=== PATIENT | female | born 1990 | race Hispanic/Latino ===

== ENCOUNTER 2018-05-16 20:10 | Emergency (ER) | payer SELFPAY ==
[~2018-05-16 20:10] MED LIST: PREN-114 PO
[2018-05-16] MEDS ORDERED: ASPIRIN 325 MG TABLET ONE (20:19)
[2018-05-16 20:29] LABS: BASOPHILS % (AUTO) 0.3 % (0.0-5.0); EOSINOPHILS % (AUTO) 1.4 % (0.0-8.0); HEMATOCRIT 41.7 % (36-48); LYMPHOCYTES % (AUTO) 42.2 % (21.0-51.0); MEAN CORPUSCULAR HEMOGLOBIN 31.1 pg (27.0-33.0); MEAN CORPUSCULAR HGB CONC 33.7 g/dL (32.0-36.0); MEAN CORPUSCULAR VOLUME 92.3 fL (79-99); MONOCYTES % (AUTO) 7.8 % (3.0-13.0); NEUTROPHILS % (AUTO) 48.3 % (40.0-77.0); NUCLEATED RED BLOOD CELLS 0.1 % (0.0-0.19); PLATELET COUNT (AUTO) 217 K/uL (130-400); RED BLOOD CELL COUNT(AUTO) 4.51 MIL/uL (4.00-5.50); RED CELL DISTRIBUTION WIDTH 13.1 % (11.0-15.5); WHITE BLOOD COUNT (AUTO) 6.7 K/uL (4.8-10.8)
[2018-05-16 20:36] LABS: HCG,QUAL RESULT NEGATIVE (NEGATIVE)
[2018-05-16 20:42] LABS: AMPHET/METH SCREEN,URINE NEGATIVE (NEGATIVE); BARBITURATE SCREEN, URINE NEGATIVE (NEGATIVE); BENZODIAZEPINES SCREEN,URINE NEGATIVE (NEGATIVE); CANNABINOID SCREEN,URINE POSITIVE (NEGATIVE); COCAINE SCREEN,URINE NEGATIVE (NEGATIVE); OPIATE SCREEN,URINE POSITIVE (NEGATIVE); PHENCYCLIDINE SCREEN,URINE NEGATIVE (NEGATIVE)
[2018-05-16 20:43] LABS: APPEARANCE,URINE Cloudy (CLEAR); BILIRUBIN,URINE Negative (NEGATIVE); COLOR,URINE Yellow (YELLOW); GLUCOSE, URINE (UA) Negative (NEGATIVE); KETONES,URINE Negative (NEGATIVE); LEUKOCYTE ESTERASE ,URINE Negative (NEGATIVE); NITRATE,URINE Negative (NEGATIVE); OCCULT BLOOD,URINE Moderate (NEGATIVE); PH,URINE 6.5 (5.0-8.0); PROTEIN,URINE Negative (NEGATIVE)
[2018-05-16 20:48] LABS: CREATININE 0.8 mg/dL (0.5-1.5); POTASSIUM 3.5 mmol/L (3.5-5.1)
[2018-05-16 20:51] LABS: INR 0.95 (0.85-1.15); PARTIAL THROMBOPLASTIN TIME 25.2 SEC (26.3-35.5)
[2018-05-16 20:53] LABS: BACTERIA,URINE Few /HPF (None Seen); WBC,URINE 0-1 /HPF (0-1)
[2018-05-16 20:54] LABS: AMORPHOUS SEDIMENT,UR Many /LPF (None Seen); MUCUS,URINE Few LPF (None Seen)
[2018-05-16 21:02] LABS: ALBUMIN 3.9 g/dL (3.5-5.0); BILIRUBIN,TOTAL 0.2 mg/dL (0.2-1.0); CREATINE KINASE MB 0.5 ng/mL (0.5-3.6); TOTAL PROTEIN, SERUM 7.7 g/dL (6.0-8.3)
[2018-05-16] MEDS ORDERED: KETOROLAC TROMETHAMINE 30MG/ML ONE (21:24)
== END 2018-05-16 21:40 | disposition home or self-care (01) ==
LOC: EDH 20:10
DX: R07.89 Other chest pain (principal); F41.9 Anxiety disorder, unspecified; F19.10 Other psychoactive substance abuse, uncomplicated; Z87.891 Personal history of nicotine dependence
CPT/HCPCS: 36415; 71045; 80053; 80305; 81001; 81025; 82550; 82553; 83874; 84484; 85025; 85610; 85730; 93005; 94761; 96374; 99285; J1885

== ENCOUNTER 2019-05-28 20:16 | Inpatient (IN) | payer SELFPAY ==
[~2019-05-28] VITALS: Ht 157.5 cm; Wt 70.8 kg
[2019-05-28] MEDS ORDERED: ONDANSETRON HCL 4 MG/2 ML VIAL ONE (20:30)
[2019-05-28] MEDS ORDERED: SODIUM CHLORIDE 0.9% 1000ML 1,000 ML IV ONE (20:30)
[2019-05-28] MEDS ORDERED: ACETAMINOPHEN 325 MG TAB ONE (20:30)
[2019-05-28 20:48] LABS: BASOPHILS % (AUTO) 0.2 % (0.0-5.0); EOSINOPHILS % (AUTO) 1.2 % (0.0-8.0); HEMATOCRIT 38.9 % (36-48); MEAN CORPUSCULAR HGB CONC 33.5 g/dL (32.0-36.0); MEAN CORPUSCULAR VOLUME 98.4 fL (79-99); MONOCYTES % (AUTO) 5.1 % (3.0-13.0); NEUTROPHILS % (AUTO) 69.5 % (40.0-77.0); PLATELET COUNT (AUTO) 186 K/uL (130-400); RED BLOOD CELL COUNT(AUTO) 3.95 MIL/uL (4.00-5.50); RED CELL DISTRIBUTION WIDTH 13.1 % (11.0-15.5); WHITE BLOOD COUNT (AUTO) 5.9 K/uL (4.8-10.8)
[2019-05-28 20:49] LABS: APPEARANCE,URINE CLOUDY (CLEAR); BILIRUBIN,URINE LARGE (NEGATIVE); COLOR,URINE YELLOW (YELLOW); GLUCOSE, URINE (UA) NEGATIVE (NEGATIVE); KETONES,URINE 5 mg/dL (NEGATIVE); LEUKOCYTE ESTERASE ,URINE NEGATIVE (NEGATIVE); NITRATE,URINE NEGATIVE (NEGATIVE); OCCULT BLOOD,URINE MODERATE (NEGATIVE); PH,URINE 8.5 (5.0-8.0); PROTEIN,URINE TRACE mg/dL (NEGATIVE); UROBILINOGEN,URINE >=8.0 mg/dL (0.2-1.0)
[2019-05-28 20:58] LABS: CREATININE 0.7 mg/dL (0.5-1.5); POTASSIUM 3.1 mmol/L (3.5-5.1)
[2019-05-28 21:00] LABS: AMPHET/METH SCREEN,URINE NEGATIVE (NEGATIVE); BARBITURATE SCREEN, URINE NEGATIVE (NEGATIVE); BENZODIAZEPINES SCREEN,URINE NEGATIVE (NEGATIVE); COCAINE SCREEN,URINE POSITIVE (NEGATIVE)
[2019-05-28 21:05] LABS: HCG,QUAL RESULT NEGATIVE (NEGATIVE)
[2019-05-28 21:08] LABS: ALBUMIN 3.9 g/dL (3.5-5.0); BILIRUBIN,TOTAL 2.7 mg/dL (0.2-1.0); TOTAL PROTEIN, SERUM 7.2 g/dL (6.0-8.3)
[2019-05-28 21:34] LABS: BACTERIA,URINE Few /HPF (None Seen); WBC,URINE 0-1 /HPF (0-1)
[2019-05-28 21:35] LABS: SQUAMOUS EPITHELIAL CELL,UR Few /HPF (0-2)
[2019-05-28 21:36] LABS: AMORPHOUS SEDIMENT,UR Moderate /LPF (None Seen); MUCUS,URINE Few LPF (None Seen)
[2019-05-28 21:41] LABS: CANNABINOID SCREEN,URINE POSITIVE (NEGATIVE); OPIATE SCREEN,URINE POSITIVE (NEGATIVE); PHENCYCLIDINE SCREEN,URINE NEGATIVE (NEGATIVE)
[2019-05-28] MEDS ORDERED: NITROGLYCERIN 0.4 MG SL TAB SL PRN (23:45)
[2019-05-28] MEDS ORDERED: ONDANSETRON HCL 4 MG/2 ML VIAL IV PRN (23:45)
[2019-05-28] MEDS ORDERED: ACETAMINOPHEN 650 MG SUPPOSITORY RC PRN ×2 (23:45)
[2019-05-28] MEDS ORDERED: POTASSIUM CHLORIDE 20MEQ/100ML 100 ML IV PRN (23:45)
[2019-05-28] MEDS ORDERED: LIDOCAINE HCL-MPF 1% 2ML VIAL IVP PRN (23:45)
[2019-05-28] MEDS ORDERED: MAGNESIUM 2GM PREMIX 50ML 50 ML IV PRN (23:45)
[2019-05-28] MEDS ORDERED: SODIUM CHLORIDE 0.9% 1000ML 1,000 ML IV SCH ×2 (23:45)
[2019-05-29] MEDS ORDERED: ASPIRIN 325MG EC TAB 325 MG TABLET.DR PO STA (00:07)
[2019-05-29] MEDS ORDERED: POTASSIUM BICARB/CIT AC 25 MEQ TABLET.EFF ONE (00:32)
[2019-05-29] MEDS ORDERED: ASPIRIN 325 MG TABLET ONE (00:32)
[2019-05-29] MEDS ORDERED: KETOROLAC TROMETHAMINE 15MG/ML ONE (01:16)
[2019-05-29] MEDS ORDERED: ONDANSETRON HCL 4 MG/2 ML VIAL ONE (01:16)
[2019-05-29 03:15] VITALS: BP 113/74
[2019-05-29 07:43] LABS: HEMATOCRIT 35.6 % (36-48); MEAN CORPUSCULAR HEMOGLOBIN 33.6 pg (27.0-33.0); MEAN CORPUSCULAR HGB CONC 33.6 g/dL (32.0-36.0); NUCLEATED RED BLOOD CELLS 0.1 % (0.0-0.19); PLATELET COUNT (AUTO) 159 K/uL (130-400); RED BLOOD CELL COUNT(AUTO) 3.56 MIL/uL (4.00-5.50); RED CELL DISTRIBUTION WIDTH 13.1 % (11.0-15.5); WHITE BLOOD COUNT (AUTO) 4.4 K/uL (4.8-10.8)
[2019-05-29 07:54] LABS: EOSINOPHILS % (MANUAL) 1 % (1-6); LYMPHOCYTES % (MANUAL) 55 % (22-44); MAN.DIFF COMMENT-IMPRESSION MANUAL DIFFERENTIAL; MONOCYTES % (MANUAL) 7 % (2-9); PLATELET MORPHOLOGY COMMENT ADEQUATE; SEGMENTED NEUTROPHILS % 37 % (40-70)
[2019-05-29 08:00] VITALS: BP 131/73
[2019-05-29 08:19] LABS: ALBUMIN 3.1 g/dL (3.5-5.0); ASPARTATE AMINOTRANSFERASE 543 U/L (10-37); BILIRUBIN,TOTAL 2.3 mg/dL (0.2-1.0); CARBON DIOXIDE 27 mmol/L (21-32); CHLORIDE 107 mmol/L (101-111); CREATINE KINASE, TOTAL 50 U/L (21-232); CREATININE 0.7 mg/dL (0.5-1.5); GLOMERULAR FILTR. RATE CALC 108 mL/min (>60); GLUCOSE,RANDOM 116 mg/dL (70-105); MYOGLOBIN 19 ng/mL (10-92); SODIUM SERUM 140 mmol/L (136-145); TOTAL PROTEIN, SERUM 6.1 g/dL (6.0-8.3); TROPONIN I < 0.04 ng/mL (0.00-0.06); UREA NITROGEN, BLOOD 10 mg/dL (7-18)
[2019-05-29 08:23] LABS: ALANINE AMINOTRANSFERASE 737 U/L (12-78)
[2019-05-29] MEDS ORDERED: ENOXAPARIN SODIUM 30 MG/0.3 ML SQ SCH (09:00)
[2019-05-29] MEDS ORDERED: ASPIRIN 325MG EC TAB 325 MG TABLET.DR PO SCH (09:00)
--- NOTE | 2019-05-29 09:30 | NUR ---
INITIAL MET W BARBARA HAWTHORNE, IN PATIENT, COHERENT- LW PARENTS AND HER KIDS. [facility] DME- ASKED IF SHE HAS SOUGHT TREATMENT FOR DRUG USE IN PAST, DENIES ADVISED PT COCAINE/CRACK CAN CAUSE EXTREME STOMACH PAIN AND IS DESTRUCTIVE TO ONES HEALTH/BEAUTY /YOUTH. CM WILL BRING DRUG REHAB INFO DC HOME, CM TO FOLLOW Addendum: 05/29/19 at 1652 by CRISTA CHEUNG RN CM Amended: Links added.
--- NOTE | 2019-05-29 09:48 | NUR ---
SURGICAL CONSULT Dr. Morrison has been notified of consult. Stated he will see patient later. He was already familiar with case.
[2019-05-29 12:00] VITALS: BP 114/60
[2019-05-29 12:25] LABS: CREATINE KINASE, TOTAL 45 U/L (21-232); MYOGLOBIN 19 ng/mL (10-92); TROPONIN I < 0.04 ng/mL (0.00-0.06)
[2019-05-29] MEDS: M.V.I. IV [ADULT] 10 ML, FOLIC ACID 1 MG, THIAMINE HCL 100 MG in SODIUM CHLORIDE 0.9% 1... IV SCH (15:17)
[2019-05-29] MEDS: FAMOTIDINE/PF 20 MG/2 ML VIAL IV SCH ×2 (15:17→21:59)
[2019-05-29] MEDS: KETOROLAC TROMETHAMINE 15MG/ML IV PRN (15:59)
[2019-05-29 16:00] VITALS: BP 119/67
--- NOTE | 2019-05-29 16:03 | NUR ---
SURGICAL CONSENT Obtained consent for laparoscopic cholecystectomy with intraoperative cholangiogram with possible open cholecystectomy; filed in chart.
[2019-05-29 20:00] VITALS: BP 119/65
[2019-05-29 23:44] VITALS: BP 122/78
[2019-05-30] VITALS (25 sets, daily range): BP systolic 107–146; BP diastolic 54–92
[2019-05-30] MEDS ORDERED: BUPIVACAINE/EPI/PF 0.5% 30ML VIAL IJ ONE ×2 (05:42→07:19)
[2019-05-30] MEDS ORDERED: ROCURONIUM 10MG/1ML SYR 10 MG/ML ML ONE (06:07)
[2019-05-30] MEDS ORDERED: LIDOCAINE PF 2% 5ML ABBOJECT ONE (06:07)
[2019-05-30] MEDS ORDERED: SUCCINYLCHOLINE 200MG/10ML SYR ONE (06:07)
[2019-05-30] MEDS ORDERED: FENTANYL CITRATE PF 50 MCG/1 ML 2ML VIAL ONE ×2 (06:07→07:52)
[2019-05-30] MEDS ORDERED: PROPOFOL 10 MG/ML 20ML VIAL IV ONE (06:07)
[2019-05-30] MEDS ORDERED: SODIUM CHLORIDE 0.9% 1000ML 1,000 ML IV ONE (06:22)
[2019-05-30] MEDS ORDERED: IOHEXOL-350 50ML VIAL IV ONE (06:35)
[2019-05-30] MEDS ORDERED: MIDAZOLAM HCL 1 MG/ML 2ML VIAL ONE (06:58)
[2019-05-30] MEDS ORDERED: CEFAZOLIN SODIUM 1 GM VIAL ONE (07:09)
[2019-05-30] MEDS ORDERED: GLUCAGON 1MG KIT 1 MG ML ONE (07:32)
[2019-05-30] MEDS ORDERED: GLYCOPYRROLATE 1 MG/5 ML SYRINGE ONE (07:48)
[2019-05-30] MEDS ORDERED: NEOSTIGMINE 5MG/5ML SYR IV ONE (07:49)
[2019-05-30] MEDS ORDERED: KETOROLAC TROMETHAMINE 30MG/ML ONE (07:52)
[2019-05-30] MEDS ORDERED: ONDANSETRON HCL 4 MG/2 ML VIAL ONE (07:52)
[2019-05-30] MEDS ORDERED: MEPERIDINE-PF 25 MG/ML SYG ONE ×2 (08:12→08:26)
[2019-05-30] MEDS: M.V.I. IV [ADULT] 10 ML, FOLIC ACID 1 MG, THIAMINE HCL 100 MG in SODIUM CHLORIDE 0.9% 1... IV SCH (09:15)
--- NOTE | 2019-05-30 09:15 | NUR ---
POST OP NOTE: RECEIVED REPORT FROM BENJAMIN WINSTON RR, PT. NOW TO ROOM 317, SHE IS AWAKE, C/O OF SOME DISCOMFORT.BP 129/76, HR 80, RR 18, T.98.6, WITH O2 SATS 98% ON RA. 4 BAND AIDS SCATTERED ACROSS ABD. CLEAN AND DRY. STARTED ON RL AT 125ML/HR. WILL REMIAN NPO UNTIL SEEN BY DR. BOGGS AND HE HAS BEEN NOTIFIED.
[2019-05-30 09:20] LABS: HEMATOCRIT 37.7 % (36-48); MEAN CORPUSCULAR HEMOGLOBIN 33.1 pg (27.0-33.0); MEAN CORPUSCULAR HGB CONC 33.2 g/dL (32.0-36.0); MEAN CORPUSCULAR VOLUME 99.7 fL (79-99); PLATELET COUNT (AUTO) 181 K/uL (130-400); RED BLOOD CELL COUNT(AUTO) 3.78 MIL/uL (4.00-5.50); RED CELL DISTRIBUTION WIDTH 13.2 % (11.0-15.5)
[2019-05-30] MEDS: FAMOTIDINE/PF 20 MG/2 ML VIAL IV SCH ×2 (09:35→20:10)
[2019-05-30 09:50] LABS: ALBUMIN 3.3 g/dL (3.5-5.0); BILIRUBIN,TOTAL 2.2 mg/dL (0.2-1.0); CREATININE 0.7 mg/dL (0.5-1.5); POTASSIUM 3.8 mmol/L (3.5-5.1); TOTAL PROTEIN, SERUM 6.4 g/dL (6.0-8.3)
--- NOTE | 2019-05-30 10:36 | NUR ---
CALLED DR. BOGGS RE: ERCP. PER PREVIOUS CONVERSATION WITH ASHISH, HE HAS ALREADY BEEN CONTACTED BY DR. JOAQUIN.
[2019-05-30] MEDS: LACTATED RINGERS 1000ML 1,000 ML IV SCH ×2 (11:42→20:11)
[2019-05-30] MEDS: MEPERIDINE-PF 25 MG/ML SYG IV PRN ×2 (11:42→20:11)
[2019-05-30] MEDS: KETOROLAC TROMETHAMINE 15MG/ML IV PRN (16:25)
[2019-05-30] MEDS: ZOSYN 3.375GM+NS 50ML 50 ML IV SCH (18:32)
--- NOTE | 2019-05-30 19:51 | NUR ---
DR. BOGGS VISITED WITH PT. PLAN TO DO ERCP TOMORROW.
--- NOTE | 2019-05-30 20:11 | NUR ---
Nursing Note Pt stated she is having pain in her abdomen and arms. I informed the pt that she does have Demerol but that probably wont help with the pain since she is having gas pain from her surgery pt stated she understands but still needs the pain medication. I also informed the pt that she needs to walk and move to help relive gas pain and to help with passing gas. Pt stated she understands but she doesn't want to move right now.
--- NOTE | 2019-05-30 22:50 | NUR ---
Nursing Note Informed the pt that she needs to move but pt is still wanting to lay in the bed. Pt is still having pain. Pt is burping but still not passing gas at this time.
[2019-05-31] VITALS (19 sets, daily range): BP systolic 108–127; BP diastolic 60–80
[2019-05-31] MEDS: ZOSYN 3.375GM+NS 50ML 50 ML IV SCH ×3 (02:31→19:51)
[2019-05-31] MEDS: LACTATED RINGERS 1000ML 1,000 ML IV SCH ×3 (02:32→19:30)
[2019-05-31] MEDS: KETOROLAC TROMETHAMINE 15MG/ML IV PRN (02:39)
[2019-05-31 05:59] LABS: MEAN CORPUSCULAR HEMOGLOBIN 32.8 pg (27.0-33.0); MEAN CORPUSCULAR VOLUME 99.4 fL (79-99); PLATELET COUNT (AUTO) 200 K/uL (130-400); RED BLOOD CELL COUNT(AUTO) 3.22 MIL/uL (4.00-5.50); RED CELL DISTRIBUTION WIDTH 13.4 % (11.0-15.5); WHITE BLOOD COUNT (AUTO) 6.3 K/uL (4.8-10.8)
[2019-05-31 06:05] LABS: LYMPHOCYTES % (MANUAL) 26 % (22-44); MAN.DIFF COMMENT-IMPRESSION MANUAL DIFFERENTIAL; MONOCYTES % (MANUAL) 2 % (2-9); SEGMENTED NEUTROPHILS % 72 % (40-70)
[2019-05-31 06:26] LABS: BILIRUBIN,TOTAL 2.4 mg/dL (0.2-1.0); CREATININE 0.7 mg/dL (0.5-1.5); POTASSIUM 4.3 mmol/L (3.5-5.1); TOTAL PROTEIN, SERUM 6.2 g/dL (6.0-8.3)
[2019-05-31] MEDS: FAMOTIDINE/PF 20 MG/2 ML VIAL IV SCH ×2 (08:32→19:52)
[2019-05-31] MEDS: MEPERIDINE-PF 25 MG/ML SYG IV PRN (11:41)
--- NOTE | 2019-05-31 15:27 | NUR ---
TO GI LAB NOW FOR ERCP.
[2019-05-31] MEDS ORDERED: IOHEXOL-350 50ML VIAL IV ONE (15:31)
[2019-05-31] MEDS ORDERED: LIDOCAINE HCL 2% 20ML ONE (16:35)
[2019-05-31] MEDS ORDERED: SUCCINYLCHOLINE CHLORIDE 20 MG/ML 10 ML VIAL ONE (16:35)
[2019-05-31] MEDS ORDERED: PROPOFOL 10 MG/ML 20ML VIAL IV ONE (16:35)
[2019-05-31] MEDS ORDERED: FENTANYL CITRATE PF 50 MCG/1 ML 2ML VIAL ONE (17:09)
[2019-05-31] MEDS ORDERED: METOCLOPRAMIDE 10 MG/2 ML VIAL ONE (17:59)
[2019-05-31] MEDS ORDERED: INDOMETHACIN 50 MG SUPP.RECT RC SCH (18:15)
--- NOTE | 2019-05-31 19:50 | NUR ---
ASSESS SHIFT ASSESSMENT DONE, PLEASE REFER TO CHART.POST OP V/S MONITORED, STABLE. DUE MEDS ADMINISTERED, TOLERATED WELL. KEPT RESTED AND COMFORTABLE. CALL LIGHT WITHIN REACH. WILL MONITOR PT.
[2019-05-31] MEDS: M.V.I. IV [ADULT] 10 ML, FOLIC ACID 1 MG, THIAMINE HCL 100 MG in SODIUM CHLORIDE 0.9% 1... IV SCH (19:51)
--- NOTE | 2019-05-31 22:15 | NUR ---
ROUNDS PT RESTING WELL. NO DISTRESS NOTED. KEPT NPO TILL MIDNIGHT THEN TO START CLEAR LIQUID DIET. PT MADE AWARE. KEPT RESTED AND COMFORTABLE. CALL LIGHT WITHIN REACH. WILL MONITOR PT.
[2019-06-01 00:28] VITALS: BP 131/80
[2019-06-01] MEDS: ZOSYN 3.375GM+NS 50ML 50 ML IV SCH ×2 (01:41→10:02)
--- NOTE | 2019-06-01 01:41 | NUR ---
WALK PT JUST GOT BACK FROM HER WALK AROUND THE FLOOR. DUE IV ANTIBIOTICS INFUSED. CLEAR LIQUID DIET TOLERATED WELL. KEPT RESTED AND COMFORTABLE. CALL LIGHT WITHIN REACH.
[2019-06-01] MEDS: LACTATED RINGERS 1000ML 1,000 ML IV SCH (02:36)
[2019-06-01 04:22] VITALS: BP 122/65
--- NOTE | 2019-06-01 06:08 | NUR ---
ROUNDS PT IS AWAKE AND WANTING TO KNOW WHEN SHE COULD GO HOME. EXPLAINED THAT MD NEEDS TO DISCHARGE HER. DENIES ANY COMPLAINTS AT THIS TIME. NO DISTRESS NOTED. FOR MORE CARE.
[2019-06-01 06:16] LABS: BASOPHILS % (AUTO) 0.3 % (0.0-5.0); EOSINOPHILS % (AUTO) 0.3 % (0.0-8.0); HEMATOCRIT 27.5 % (36-48); LYMPHOCYTES % (AUTO) 36.1 % (21.0-51.0); MEAN CORPUSCULAR HEMOGLOBIN 33.8 pg (27.0-33.0); MEAN CORPUSCULAR HGB CONC 34.3 g/dL (32.0-36.0); MEAN CORPUSCULAR VOLUME 98.7 fL (79-99); MONOCYTES % (AUTO) 7.9 % (3.0-13.0); NEUTROPHILS % (AUTO) 55.4 % (40.0-77.0); PLATELET COUNT (AUTO) 177 K/uL (130-400); RED BLOOD CELL COUNT(AUTO) 2.78 MIL/uL (4.00-5.50); RED CELL DISTRIBUTION WIDTH 13.4 % (11.0-15.5)
[2019-06-01 06:39] LABS: ALBUMIN 3.1 g/dL (3.5-5.0); BILIRUBIN,TOTAL 1.1 mg/dL (0.2-1.0); CREATININE 0.7 mg/dL (0.5-1.5); POTASSIUM 3.4 mmol/L (3.5-5.1); TOTAL PROTEIN, SERUM 6.3 g/dL (6.0-8.3)
[2019-06-01] MEDS ORDERED: POTASSIUM CHLORIDE 20MEQ/100ML 100 ML IV PRN (06:45)
[2019-06-01] MEDS ORDERED: POTASSIUM CHLORIDE 20 MEQ ERTAB PO PRN (06:45)
[2019-06-01] MEDS ORDERED: POTASSIUM CHLORIDE 10% ELIXIR 20 MEQ/15 ML UDCUP PO PRN (06:45)
[2019-06-01] MEDS ORDERED: LIDOCAINE HCL-MPF 1% 2ML VIAL IVP PRN (06:45)
[2019-06-01 07:00] VITALS: BP 119/70
--- NOTE | 2019-06-01 08:00 | NUR ---
AM ROUNDS.NO PAIN THIS AM.
[2019-06-01] MEDS ORDERED: PRENATAL VITAMIN RX TABLET PO SCH ×2 (09:00)
[2019-06-01] MEDS: FAMOTIDINE/PF 20 MG/2 ML VIAL IV SCH (10:02)
[2019-06-01] MEDS ORDERED: ACET-66 PO (12:41)
--- NOTE | 2019-06-01 13:00 | NUR ---
discharged now using teach back, verbalizes understanding of all dc inst. given. no rx. given. will call dr. hernandez office in am for an appt.
== END 2019-06-01 13:00 | disposition home or self-care (01) | DRG 417 ==
LOC: EDH 20:16 → EDHIP 20:17 → OBSVTOIN 20:17 → 3CH 05-29 02:23
PROVIDERS: ADMIT Internal Medicine; ATTEND Internal Medicine
PROC: 0FT44ZZ Resection of Gallbladder, Percutaneous Endoscopic Approach (ICD-10-PCS; principal; 2019-05-30 06:47)
PROC: BF141ZZ Fluoroscopy of Gallbladder, Bile Ducts and Pancreatic Ducts using Low Osmolar Contrast (ICD-10-PCS; 2019-05-30 06:47)
PROC: 0F798ZZ Dilation of Common Bile Duct, Via Natural or Artificial Opening Endoscopic (ICD-10-PCS; 2019-05-31)
DX: K80.70 Calculus of gallbladder and bile duct without cholecystitis without obstruction (principal); K85.10 Biliary acute pancreatitis without necrosis or infection; E87.6 Hypokalemia; F12.90 Cannabis use, unspecified, uncomplicated; F17.210 Nicotine dependence, cigarettes, uncomplicated; F41.9 Anxiety disorder, unspecified; K75.9 Inflammatory liver disease, unspecified; K83.8 Other specified diseases of biliary tract; R74.8 Abnormal levels of other serum enzymes; K76.0 Fatty (change of) liver, not elsewhere classified; Z90.49 Acquired absence of other specified parts of digestive tract; Z82.5 Family history of asthma and other chronic lower respiratory diseases; Z82.49 Family history of ischemic heart disease and other diseases of the circulatory system
CPT/HCPCS: 36415; 43262; 48400; 71045; 74330; 76705; 80053; 80061; 80305; 81001; 81025; 82150; 82550; 83690; 83735; 83874; 84484; 85025; 85027; 87088; 88304; 93005; C1758; C1769; C1773; G0378; J0330; J0690; J1610; J1885; J2001; J2175; J2250; J2405; J2543; J2704; J2710; J2765; J3010; J3411; J3490; J7030; J7120; Q9967

== ENCOUNTER 2019-09-16 14:03 | Emergency (ER) | payer SELFPAY ==
[~2019-09-16 14:03] MED LIST changes: +ACET-66 PO
== END 2019-09-16 14:27 | disposition home or self-care (01) ==
LOC: EDH 14:03
DX: N89.8 Other specified noninflammatory disorders of vagina (principal); F41.9 Anxiety disorder, unspecified; Z72.0 Tobacco use
CPT/HCPCS: 99281

== ENCOUNTER 2025-01-14 08:50 | Emergency (ER) | payer OTHER ==
[~2025-01-14] VITALS: Ht 154.9 cm; Wt 54.9 kg
--- NOTE | 2025-01-14 09:42 | ERN ---
ED Note History of Present Illness Stated Complaint: SEIZURE Chief Complaint: Seizure Time Seen by MD: 09:15 Dictation: 34-year-old female without any prior history of seizures presents to the ED for evaluation of seizure-like activity onset COLLAR BAND CREASER. Significant other states he witnessed the seizure-like activity lasting approximately 30 seconds to 1 minute. Patient does not remember anything prior to the seizure and just remembers waking up on the floor, patient is not sure if she hit her head, but does report mouth pain stating she bit the inside of her cheeks. Allergies: Coded Allergies: No Known Allergies (Unverified Allergy, Unknown, 08/17/14) Home Meds Reported Medications Acetaminophen (Tylenol) 500 Mg Tab, 500 MG PO QIDP for PAIN, TAB 06/01/19 Vit/Iron Fumarate/FA ( Vitamin Tablet) 1 Each Tablet, 1 EACH PO DAILY, TAB 08/17/14 Past Medical History Past Medical History: No Pertinent History Surgical History: Cholecystectomy LMP: Dec 31, 2024 Review of System Dictation Constitutional: Negative for fever,chills, and weight loss Eyes: Negative for injury, pain,redness, and discharge ENT: Positive for both pain Negative for injury or swelling Cardiovascular: Negative for chest pain, palpitations, and edema Respiratory: Negative for shortness of breath, cough, and wheezing, Abdomen/GI: Negative for abdominal pain, nausea, vomiting, diarrhea, and constipation Back: Negative for injury and pain : Negative for injury, bleeding and discharge MS/Extremity: Negative for injury and deformity Skin: Negative for rash, and discoloration Neuro: Positive for seizure Negative for headache, weakness, numbness, tingling Psych: Negative for suicide ideation, homicidal ideation, and hallucinations Initial Vital Sign VS Vital Signs Date Time Temp Pulse Resp B/P (MAP) Pulse Ox O2 Delivery O2 Flow Rate FiO2 01/14/25 08:52 97.2 99 20 124/88 100 Room Air 0 01/14/25 10:16 21 Physical Exam Dictation General: awake, alert, NAD Head/Face: Normocephalic, atraumatic Eyes: PERRL, EOMI, vision at baseline ENT: oral cavity clear, TMs clear, no signs of infection Neck: Trachea midline, supple, no nuchal rigidity Cardiovascular: RRR, normal S1/S2, No MRGs, no JVD Respiratory: CTAB, no respiratory distress, No rales or wheezes Abdomen: Soft, non-tender, non-distended, normal bowel sounds, no guarding or rebound. Skin: Warm, dry, normal turgor, no rash MS/Extremity: Pulses equal, no cyanosis, neurovascular intact, FROM Neuro: COAx4, GCS 15, strength 5/5, CN 2-12 intact, normal cerebellar exam, normal gait, Psych: Normal behavior, mood, and affect normal Results (Laboratory/Radiology) Laboratory/Radiology Laboratory Tests Test 01/14/25 09:16 01/14/25 09:29 Urine Color LIGHT-YELLOW (YELLOW) Urine Appearance CLEAR (CLEAR) Urine pH 6.5 (5.0-8.0) Urine Specific [place] 1.019 (1.001-1.031) Urine Protein 20 mg/dL (NEGATIVE) H Urine Glucose (UA) NEGATIVE mg/dL (NEGATIVE) Urine Ketones NEGATIVE mg/dL (NEGATIVE) Urine Occult Blood +- (TRACE) (NEGATIVE) H Urine Nitrate NEGATIVE (NEGATIVE) Urine Bilirubin NEGATIVE mg/dL (NEGATIVE) Urine Urobilinogen 4.0 mg/dL (0.2-1.0) H Urine Leukocyte Esterase 75 Tylor/uL (NEGATIVE) H Urine RBC 6-10 /HPF (0-1) H Urine WBC 6-10 /HPF (0-1) H Urine Squamous Epithelial Cells FEW /HPF (0-2) Urine Bacteria FEW /HPF (None Seen) Urine Hyaline Casts 2-5 /LPF (0-1 /LPF) H Urine Other Casts 1 /LPF (None Seen) Urine HCG, Qualitative NEGATIVE (NEGATIVE) Urine Opiates Screen NEGATIVE (NEGATIVE) Urine Barbiturates Screen NEGATIVE (NEGATIVE) Urine Phencyclidine Screen NEGATIVE (NEGATIVE) Urine Amphetamines Screen NEGATIVE (NEGATIVE) Urine Benzodiazepines Screen NEGATIVE (NEGATIVE) Urine Cocaine Screen POSITIVE (NEGATIVE) H Urine Marijuana (THC) Screen NEGATIVE (NEGATIVE) White Blood Count 5.7 K/uL (4.8-10.8) Red Blood Count 4.10 MIL/uL (4.00-5.50) Hemoglobin 13.0 g/dL (12.0-16.0) Hematocrit 39.5 % (36-48) Mean Corpuscular Volume 96.3 fL (79-99) Mean Corpuscular Hemoglobin 31.7 pg (27.0-33.0) Mean Corpuscular Hemoglobin Concent 32.9 g/dL (32.0-36.0) Red Cell Distribution Width 12.3 % (11.0-15.5) Platelet Count 289 K/uL (130-400) Mean Platelet Volume 11.0 fL (7.5-10.5) H Immature Granulocyte % (Auto) 0.2 % (0-1) Neutrophils (%) (Auto) 55.7 % (40.0-77.0) Lymphocytes (%) (Auto) 36.5 % (21.0-51.0) Monocytes (%) (Auto) 6.7 % (3.0-13.0) Eosinophils (%) (Auto) 0.5 % (0.0-8.0) Basophils (%) (Auto) 0.4 % (0.0-5.0) Neutrophils # (Auto) 3.2 K/uL (1.8-7.7) Lymphocytes # (Auto) 2.1 K/uL (1.0-4.8) Monocytes # (Auto) 0.4 K/uL (0.1-1.0) Eosinophils # (Auto) 0.03 K/uL (0.00-0.70) Basophils # (Auto) 0.02 K/uL (0.00-0.20) Absolute Immature Granulocyte (auto 0.01 K/uL (0-1) Nucleated Red Blood Cells 0.0 % (0.0-0.19) Sodium Level 141 mmol/L (136-145) Potassium Level 3.6 mmol/L (3.5-5.1) Chloride Level 105 mmol/L (101-111) Carbon Dioxide Level 29 mmol/L (21-32) Blood Urea Nitrogen 6 mg/dL (7-18) L Creatinine 0.5 mg/dL (0.5-1.0) Glomerular Filtration Rate Calc 128 mL/min (>90) Random Glucose 108 mg/dL (70-105) H Total Calcium 8.7 mg/dL (8.5-10.1) Total Bilirubin 0.4 mg/dL (0.2-1.0) Direct Bilirubin 0.1 mg/dL (0.0-0.3) Aspartate Amino Transf (AST/SGOT) 18 U/L (10-37) Alanine Aminotransferase (ALT/SGPT) 19 U/L (12-78) Alkaline Phosphatase 58 U/L (50-136) Total Protein 7.2 g/dL (6.0-8.3) Albumin 4.1 g/dL (3.5-5.0) Labs Reviewed?: Yes ED Course ED Course Orders Procedure Category Date Status Time Saline Lock Iv CPOE 01/14/25 Transmitted 08:59 Seizure Precautions CPOE 01/14/25 Transmitted 08:59 Cbc With Differential LAB 01/14/25 Complete 08:59 Basic Metabolic Panel LAB 01/14/25 Complete 08:59 Urinalysis Profile LAB 01/14/25 Complete 09:01 Drug Screen Urine LAB 01/14/25 Complete 09:01 ,Urine Test LAB 01/14/25 Complete 09:01 Hepatic Function Panel LAB 01/14/25 Complete 09:16 Ct Head/Brain W/O CT 01/14/25 Resulted Contrast 09:22 Culture Urine LORNE 01/14/25 Logged 10:37 Vital Signs Date Time Temp Pulse Resp B/P (MAP) Pulse Ox O2 Delivery O2 Flow Rate FiO2 01/14/25 10:16 97.7 92 18 119/81 100 Room Air* 0 21 01/14/25 08:52 97.2 99 20 124/88 100 Room Air 0 Medical Decision Making MDM MDM: Differential diagnosis: Seizure-like activity,cocain abuse Risk of complication and/or morbidity or mortality of patient management: None Medications-Per medication reconciliation Need for hospitalization: Patient does not meet criteria for hospitalization. Need for emergency major/minor surgery: No There are no social concerns with this patient. I independently interpreted the test that were performed, results were reviewed by me and considered findings on radiology if ordered. DX & DISP Disposition: Discharge Departure Impression: Primary Impression: Seizure Additional Impression: Cocaine abuse Condition: Stable Referrals: SELF,REFERRAL (PCP) YOGI FULLER MD Jan 14, 2025 09:42
[2025-01-14 10:00] LABS: BASOPHILS # (AUTO) 0.02 K/uL (0.00-0.20); BASOPHILS % (AUTO) 0.4 % (0.0-5.0); CREATININE 0.5 mg/dL (0.5-1.0); EOSINOPHILS # (AUTO) 0.03 K/uL (0.00-0.70); EOSINOPHILS % (AUTO) 0.5 % (0.0-8.0); HEMATOCRIT 39.5 % (36-48); IMMATURE GRANULOCYTE ABSOLUTE 0.01 K/uL (0-1); LYMPHOCYTES # (AUTO) 2.1 K/uL (1.0-4.8); LYMPHOCYTES % (AUTO) 36.5 % (21.0-51.0); MEAN CORPUSCULAR HEMOGLOBIN 31.7 pg (27.0-33.0); MEAN CORPUSCULAR HGB CONC 32.9 g/dL (32.0-36.0); MEAN CORPUSCULAR VOLUME 96.3 fL (79-99); MONOCYTES # (AUTO) 0.4 K/uL (0.1-1.0); MONOCYTES % (AUTO) 6.7 % (3.0-13.0); NEUTROPHILS # (AUTO) 3.2 K/uL (1.8-7.7); NEUTROPHILS % (AUTO) 55.7 % (40.0-77.0); PLATELET COUNT (AUTO) 289 K/uL (130-400); POTASSIUM 3.6 mmol/L (3.5-5.1); RED CELL DISTRIBUTION WIDTH 12.3 % (11.0-15.5); WHITE BLOOD COUNT (AUTO) 5.7 K/uL (4.8-10.8)
[2025-01-14 10:06] LABS: ALBUMIN 4.1 g/dL (3.5-5.0); BILIRUBIN,DIRECT 0.1 mg/dL (0.0-0.3); BILIRUBIN,TOTAL 0.4 mg/dL (0.2-1.0); TOTAL PROTEIN, SERUM 7.2 g/dL (6.0-8.3)
[2025-01-14 10:26] LABS: APPEARANCE,URINE CLEAR (CLEAR); BILIRUBIN,URINE NEGATIVE (NEGATIVE); COLOR,URINE LIGHT-YELLOW (YELLOW); GLUCOSE, URINE (UA) NEGATIVE (NEGATIVE); KETONES,URINE NEGATIVE (NEGATIVE); LEUKOCYTE ESTERASE ,URINE 75 Leu/uL (NEGATIVE); NITRATE,URINE NEGATIVE (NEGATIVE); PH,URINE 6.5 (5.0-8.0); PROTEIN,URINE 20 mg/dL (NEGATIVE)
[2025-01-14 10:32] LABS: AMPHET/METH SCREEN,URINE NEGATIVE (NEGATIVE); BARBITURATE SCREEN, URINE NEGATIVE (NEGATIVE); BENZODIAZEPINES SCREEN,URINE NEGATIVE (NEGATIVE); CANNABINOID SCREEN,URINE NEGATIVE (NEGATIVE); COCAINE SCREEN,URINE POSITIVE (NEGATIVE); OPIATE SCREEN,URINE NEGATIVE (NEGATIVE); PHENCYCLIDINE SCREEN,URINE NEGATIVE (NEGATIVE)
[2025-01-14 10:37] LABS: ADD UA MICROSCOPIC YES
[2025-01-14 10:40] LABS: BACTERIA,URINE FEW /HPF (None Seen); MUCUS,URINE FEW LPF (None Seen); OTHER CASTS, URINE 1 /LPF (None Seen); SQUAMOUS EPITHELIAL CELL,UR FEW /HPF (0-2)
--- NOTE | 2025-01-14 10:40 | HMCIMG ---
Exam: NONCONTRAST CT BRAIN REASON: new onset SZ. COMPARISON: None. TECHNIQUE: Images are obtained from vertex to the skull base. The exam was performed without IV contrast. FINDINGS: There is normal appearing brain parenchyma. There are no focal mass lesions. There is is no evidence of intracranial hemorrhage or acute stroke. Ventricles and sulci appear normal. Posterior fossa and brainstem structures are unremarkable. Paranasal sinuses and remaining extracranial soft tissues appear normal as well. IMPRESSION: 1. Normal noncontrast CT brain. CT was performed with one or more following dose reduction techniques: automated exposure control, adjustment of the mA and kv according to patient's size, or use of a iterative reconstruction technique.
[2025-01-14 10:47] LABS: HCG,QUALITATIVE URINE NEGATIVE (NEGATIVE)
[2025-01-14] MEDS: leveTIRACEtam 500 MG TABLET PO ONE (10:58)
[2025-01-14 11:12] VITALS: BP 129/93; PULSE 71; RESP 15; TEMP 97.5; O2SAT 100
--- NOTE | 2025-01-14 11:15 | NUR ---
patient was dc'd by er dr elly jones patients iv with cath still in place and applied 2x2 gauze with tape i explained to patient to follow up with pcp and neurologist patient ambulated out of er, no complications
== END 2025-01-14 11:13 | disposition home or self-care (01) ==
LOC: EDH 08:50
DX: R56.9 Unspecified convulsions (principal); F14.10 Cocaine abuse, uncomplicated; Z90.49 Acquired absence of other specified parts of digestive tract
CPT/HCPCS: 36415; 70450; 80048; 80076; 80305; 81001; 81025; 85025; 87086; 99284

== ENCOUNTER 2025-11-12 14:40 | Emergency (ER) | payer OTHER ==
[~2025-11-12] VITALS: Ht 154.9 cm; Wt 62.7 kg
[2025-11-12 15:02] LABS: IMMATURE GRANULOCYTE ABSOLUTE 0.02 K/uL (0-1); NUCLEATED RED BLOOD CELLS 0.0 % (0.0-0.19); PLATELET COUNT (AUTO) 327 K/uL (130-400); RED BLOOD CELL COUNT(AUTO) 4.41 MIL/uL (4.00-5.50); RED CELL DISTRIBUTION WIDTH 12.8 % (11.0-15.5); WHITE BLOOD COUNT (AUTO) 7.0 K/uL (4.8-10.8)
[2025-11-12 15:07] LABS: ADD UA MICROSCOPIC YES; APPEARANCE,URINE CLEAR (CLEAR); GLUCOSE, URINE (UA) NEGATIVE (NEGATIVE); LEUKOCYTE ESTERASE ,URINE NEGATIVE Leu/uL (NEGATIVE); NITRATE,URINE NEGATIVE (NEGATIVE); OCCULT BLOOD,URINE SMALL (NEGATIVE)
[2025-11-12 15:09] LABS: HCG,QUALITATIVE URINE NEGATIVE (NEGATIVE)
[2025-11-12 15:10] LABS: SQUAMOUS EPITHELIAL CELL,UR RARE /HPF (0-2)
[2025-11-12 15:19] LABS: CREATININE 0.6 mg/dL (0.5-1.0); GLOMERULAR FILTR. RATE CALC 122.0 mL/min (>90); GLUCOSE,RANDOM 107.0 mg/dL (70-105); SODIUM SERUM 139.0 mmol/L (136-145); UREA NITROGEN, BLOOD 10.0 mg/dL (7-18)
[2025-11-12 15:22] VITALS: BP 125/86; PULSE 94; RESP 17; TEMP 98.1; O2SAT 99
[2025-11-12] MEDS: 0.9%NACL 1000ML 1,000 ML IV STA (15:22)
[2025-11-12 15:23] LABS: ASPARTATE AMINOTRANSFERASE 13.0 U/L (10-37); TOTAL PROTEIN, SERUM 7.6 g/dL (6.0-8.3)
[2025-11-12] MEDS: FAMOTIDINE 20MG VIAL IV ONE (15:31)
[2025-11-12] MEDS: MAG/ALUM/SIMETH 30 ML UDCUP PO ONE (15:31)
[2025-11-12] MEDS: LIDOCAINE HCL 2% VISCOUS 15 ML UDCUP PO ONE (15:32)
[2025-11-12] MEDS ORDERED: FAMO-136 PO (15:34)
--- NOTE | 2025-11-12 15:34 | ERN ---
ED Note History of Present Illness Stated Complaint: ABDOMINAL PAIN Chief Complaint: Abdominal Pain Time Seen by MD: 14:44 Time Seen by Midlevel: 14:48 Dictation: 34-year-old female with no past medical history coming in with complaints of epigastric pain for the last couple of days. Patient also states her urine smells in his concerned for STIs. Denies any fever, nausea or vomiting, weight loss, night sweats. Allergies: Coded Allergies: No Known Allergies (Unverified Allergy, Unknown, 08/17/14) Home Meds Reported Medications Acetaminophen (Tylenol) 500 Mg Tab, 500 MG PO QIDP for PAIN, TAB 06/01/19 Vit/Iron Fumarate/FA ( Vitamin Tablet) 1 Each Tablet, 1 EACH PO DAILY, TAB 08/17/14 Past Medical History Past Medical History: No Pertinent History Surgical History: Cholecystectomy Review of System Dictation Constitutional: Negative for fever,chills, and weight loss Eyes: Negative for injury, pain,redness, and discharge ENT: Negative for injury,pain or swelling Cardiovascular: Negative for chest pain, palpitations, and edema Respiratory: Negative for shortness of breath, cough, and wheezing, Abdomen/GI: Epigastric pain with the nausea Back: Negative for injury and pain : Negative for injury, bleeding and discharge complaining of foul odor in urine MS/Extremity: Negative for injury and deformity Skin: Negative for rash, and discoloration Neuro: Negative for headache, weakness, numbness, tingling, and seizure Psych: Negative for suicide ideation, homicidal ideation, and hallucinations Review of Systems: was completed Initial Vital Sign VS Vital Signs Date Time Temp Pulse Resp B/P (MAP) Pulse Ox O2 Delivery O2 Flow Rate FiO2 11/12/25 14:41 98.1 118 18 145/94 99 Room Air 11/12/25 15:22 0 21 Physical Exam Dictation General: awake, alert, NAD Head/Face: Normocephalic, atraumatic Eyes: PERRL, EOMI, vision at baseline ENT: oral cavity clear, TMs clear, no signs of infection Neck: Trachea midline, supple, no nuchal rigidity Cardiovascular: RRR, normal S1/S2, No MRGs, no JVD Respiratory: CTAB, no respiratory distress, No rales or wheezes Abdomen: Soft, non-tender, non-distended, normal bowel sounds, no guarding or rebound. Skin: Warm, dry, normal turgor, no rash MS/Extremity: Pulses equal, no cyanosis, neurovascular intact, FROM Neuro: COAx4, GCS 15, strength 5/5, CN 2-12 intact, normal cerebellar exam, normal gait, Psych: Normal behavior, mood, and affect normal Results (Laboratory/Radiology) Laboratory/Radiology Laboratory Tests Test 11/12/25 14:55 11/12/25 14:59 White Blood Count 7.0 K/uL (4.8-10.8) Red Blood Count 4.41 MIL/uL (4.00-5.50) Hemoglobin 14.0 g/dL (12.0-16.0) Hematocrit 42.4 % (36-48) Mean Corpuscular Volume 96.1 fL (79-99) Mean Corpuscular Hemoglobin 31.7 pg (27.0-33.0) Mean Corpuscular Hemoglobin Concent 33.0 g/dL (32.0-36.0) Red Cell Distribution Width 12.8 % (11.0-15.5) Platelet Count 327 K/uL (130-400) Mean Platelet Volume 10.0 fL (7.5-10.5) Immature Granulocyte % (Auto) 0.3 % (0-1) Neutrophils (%) (Auto) 70.5 % (40.0-77.0) Lymphocytes (%) (Auto) 23.2 % (21.0-51.0) Monocytes (%) (Auto) 4.3 % (3.0-13.0) Eosinophils (%) (Auto) 1.3 % (0.0-8.0) Basophils (%) (Auto) 0.4 % (0.0-5.0) Neutrophils # (Auto) 4.9 K/uL (1.8-7.7) Lymphocytes # (Auto) 1.6 K/uL (1.0-4.8) Monocytes # (Auto) 0.3 K/uL (0.1-1.0) Eosinophils # (Auto) 0.09 K/uL (0.00-0.70) Basophils # (Auto) 0.03 K/uL (0.00-0.20) Absolute Immature Granulocyte (auto 0.02 K/uL (0-1) Nucleated Red Blood Cells 0.0 % (0.0-0.19) Sodium Level 139 mmol/L (136-145) Potassium Level 4.1 mmol/L (3.5-5.1) Chloride Level 105 mmol/L (101-111) Carbon Dioxide Level 25 mmol/L (21-32) Blood Urea Nitrogen 10 mg/dL (7-18) Creatinine 0.6 mg/dL (0.5-1.0) Glomerular Filtration Rate Calc 122 mL/min (>90) Random Glucose 107 mg/dL (70-105) H Total Calcium 8.5 mg/dL (8.5-10.1) Total Bilirubin 0.2 mg/dL (0.2-1.0) Direct Bilirubin 0.1 mg/dL (0.0-0.3) Aspartate Amino Transf (AST/SGOT) 13 U/L (10-37) Alanine Aminotransferase (ALT/SGPT) 19 U/L (12-78) Alkaline Phosphatase 59 U/L (50-136) Total Protein 7.6 g/dL (6.0-8.3) Albumin 3.8 g/dL (3.5-5.0) Lipase 30 U/L (16-77) Urine Color LIGHT-YELLOW (YELLOW) Urine Appearance CLEAR (CLEAR) Urine pH 6.5 (5.0-8.0) Urine Specific [place] 1.015 (1.001-1.031) Urine Protein NEGATIVE mg/dL (NEGATIVE) Urine Glucose (UA) NEGATIVE mg/dL (NEGATIVE) Urine Ketones NEGATIVE mg/dL (NEGATIVE) Urine Occult Blood SMALL (NEGATIVE) H Urine Nitrate NEGATIVE (NEGATIVE) Urine Bilirubin NEGATIVE mg/dL (NEGATIVE) Urine Urobilinogen 0.2 mg/dL (0.2-1.0) Urine Leukocyte Esterase NEGATIVE Tylor/uL Urine RBC 11-25 /HPF (0-1) H Urine WBC 2-5 /HPF (0-1) H Urine Squamous Epithelial Cells RARE /HPF (0-2) Urine Bacteria RARE /HPF (None Seen) Urine HCG, Qualitative NEGATIVE (NEGATIVE) Labs Reviewed?: Yes ED Course ED Course Orders Procedure Category Date Status Time Cbc With Differential LAB 11/12/25 Complete 14:46 Basic Metabolic Panel LAB 11/12/25 Complete 14:46 Urinalysis Profile LAB 11/12/25 Complete 14:46 ,Urine Test LAB 11/12/25 Complete 14:46 Hepatic Function Panel LAB 11/12/25 Complete 14:46 Lipase LAB 11/12/25 Complete 14:46 0.9%Nacl 1000ml (Ns PHA 11/12/25 In Process 1000ml) 14:46 Chlamydia & Gc Pcr LORNE 11/12/25 Logged 15:01 Ketorolac PHA 11/12/25 In Process Tromethamine 15mg/Ml 15:30 Famotidine 20mg Vial PHA 11/12/25 In Process (Pepcid 20mg Vial) 15:30 Lidocaine Hcl 2% PHA 11/12/25 In Process Viscous (Lidocaine Hcl 15:30 Mag/Alum/Simeth 30ml PHA 11/12/25 In Process (Maalox Plus 30ml) 15:30 Ceftriaxone 1g Vial PHA 11/12/25 Verified (Rocephine 1g Inj) 15:30 Azithromycin PHA 11/12/25 Verified (Zithromax) 15:30 Current Medications Medications (Trade) Dose Ordered Sig/Yonatan Route PRN Reason Start Time Stop Time Status Last Admin Dose Admin Al Hydroxide/Mg Hydroxide (MAALox PLUS 30ML) 30 ml ONCE ONCE PO 11/12/25 15:30 11/12/25 15:31 Famotidine (Pepcid 20mg Vial) 20 mg ONCE ONCE IV 11/12/25 15:30 11/12/25 15:31 Ketorolac Tromethamine (toRADol) 15 mg ONCE ONCE IV 11/12/25 15:30 11/12/25 15:31 Lidocaine HCl (Lidocaine HCl 2% Viscous) 10 ml ONCE ONCE PO 11/12/25 15:30 11/12/25 15:31 Sodium Chloride 1,000 ml @ 1,000 mls/hr Q1H STAT IV 11/12/25 14:46 11/12/25 15:45 11/12/25 15:22 Vital Signs Date Time Temp Pulse Resp B/P (MAP) Pulse Ox O2 Delivery O2 Flow Rate FiO2 11/12/25 15:22 98.1 94 17 125/86 99 Room Air* 0 21 11/12/25 14:41 98.1 118 18 145/94 99 Room Air Medical Decision Making MDM MDM: 34-year-old female with no past medical history coming in with complaints of epigastric pain for the last couple of days. Patient also states her urine smells in his concerned for STIs. Denies any fever, nausea or vomiting, weight loss, night sweats. All blood work is unremarkable. UA shows no evidence of urinary tract infection. Patient isn't . Gave patient is a medic control as her symptoms more than likely related to possibly GERD or gastritis. Also gave patient prophylactic STD and sent her urine off for chlamydia and gonorrhea. Educated patient these take a while and we will be called if positive. Educated patient on signs and symptoms of when to return back to the ER. Patient verbalized understanding, answered all questions. Differential diagnosis: Pancreatitis, gastritis, GERD, UTI Rationale: Tests considered and ordered secondary to shared decision making include: Previous outside records reviewed: Old ER visits. Risk of complication and/or morbidity or mortality of patient management: None Medications-Per medication reconciliation Need for hospitalization: Patient does not meet criteria for hospitalization. Need for emergency major/minor surgery: No There are no social concerns with this patient. Prescription drug management Prescriptions will include symptomatic care Patient's prior external medical records from other ER visits were reviewed by me as indicated. Prior testing and results from previous visits were reviewed. Prior tests were taken into account with medical decision making and resource utilization, independent historian/historians were used to obtain complete medical history. I independently interpreted the test that were performed, results were reviewed by me and considered findings on radiology if ordered. Medical management and examination interpretation discussions were had by me with other qualified healthcare professionals as indicated for the patient's care. DX & DISP Disposition: Discharge Departure Impression: Primary Impression: Epigastric abdominal pain Condition: Stable Scripts Famotidine (Pepcid) 20 Mg Tablet 1 TAB PO BID for 15 Days, #30 TAB 0 Refills Prov: ROSEMARY GREENE CNP 11/12/25 Additional Instructions: Your lab work looks normal. More than like he your experiencing gastritis or reflux. You do not have any urine infection. Remember the STD exams that we did we will not come back today and they will call you if they are positive. Avoid any spicy, greasy foods. Return to the hospital if you develop any fever, nausea or vomiting. Referrals: SELF,REFERRAL (PCP) Time of Disposition: 15:33 I have reviewed the case, and I agree with, Diagnosis and Plan ROSEMARY GREENE CNP Nov 12, 2025 15:34
[2025-11-12] MEDS: AZITHROMYCIN 250 MG TABLET PO ONE (15:40)
== END 2025-11-12 16:28 | disposition home or self-care (01) ==
LOC: EDH 14:40
DX: R10.13 Epigastric pain (principal); R82.998 Other abnormal findings in urine; Z90.49 Acquired absence of other specified parts of digestive tract; Z79.899 Other long term (current) drug therapy
CPT/HCPCS: 99284; 96365; 96375; 80076; 80048; 83690; 85025; 87491; 87591; 81001; 81025; 36415; J1885; J1308; J7030; J0696